=== PATIENT | male | born 1985 | race Caucasian/White ===

== ENCOUNTER 2016-12-18 19:44 | Emergency (ER) | payer MEDICAID ==
[2016-12-18 19:54] VITALS: BP 160/74
== END 2016-12-18 21:26 | disposition other institution (70) ==
LOC: ED 19:44
DX: S43.102A Unspecified dislocation of left acromioclavicular joint, initial encounter (principal); S21.202A Unspecified open wound of left back wall of thorax without penetration into thoracic cavity, initial encounter; V29.60XA Unspecified motorcycle rider injured in collision with unspecified motor vehicles in traffic accident, initial encounter; Y93.89 Activity, other specified; Y92.89 Other specified places as the place of occurrence of the external cause; Y99.8 Other external cause status

== ENCOUNTER 2016-12-18 19:44 | Emergency (ER) | payer OTHER | END 2016-12-18 21:26 | disposition other institution (70) | LOC: ED 19:44 | DX: Z02.89 Encounter for other administrative examinations (principal) ==